=== PATIENT | male | born 1985 | race Caucasian/White ===

== ENCOUNTER 2017-10-07 18:33 | Emergency (ER) | payer MEDICAID, OTHER ==
[2017-10-07 18:42] VITALS: BP 134/99
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
== END 2017-10-07 20:14 | disposition home or self-care (01) ==
DX: S43.401A Unspecified sprain of right shoulder joint, initial encounter (principal); S53.402A Unspecified sprain of left elbow, initial encounter; S70.211A Abrasion, right hip, initial encounter; S70.212A Abrasion, left hip, initial encounter; S50.311A Abrasion of right elbow, initial encounter; S50.312A Abrasion of left elbow, initial encounter; F17.200 Nicotine dependence, unspecified, uncomplicated; V13.4XXA Pedal cycle driver injured in collision with car, pick-up truck or van in traffic accident, initial encounter; Y92.410 Unspecified street and highway as the place of occurrence of the external cause; Y99.8 Other external cause status; Y93.55 Activity, bike riding